=== PATIENT | female | born 1970 | race Caucasian/White ===

== ENCOUNTER 2020-12-13 07:38 | Outpatient (CLI) | payer BC ==
[2020-12-13] MEDS ORDERED: LIDOCAINE 1% Multi-Dose 20 ML VIAL. ONE (08:04)
[2020-12-13] MEDS ORDERED: IOHEXOL 180 MG/ML 10 ML VIAL. ONE (08:04)
[2020-12-13 09:17] VITALS: BP 200/110
[2020-12-13 09:22] VITALS: BP 168/81
--- NOTE | 2020-12-13 09:36 | RAD ---
EXAM: Fluoroscopic guided lumbar puncture for CT myelography; lumbar spine CT myelogram. HISTORY: 50-year-old female with back and hip pain. TECHNIQUE: The risks of the procedure discussed with the patient and written and verbal consent was o btained. A timeout was performed. The patient was placed in a prone position on the fluoroscopy table and a site overlying L3-L4 was selected for needle entry. The skin in this location was sterilely pr epped, draped and infiltrated with 1 percent lidocaine. A 22-gauge needle was advanced into the theca l sac. No fluid was obtained. Therefore, using the same technique, the L4-L5 level was selected for n eedle entry. A 22-gauge needle was advanced into the thecal sac and fluid was obtained and the needle hub. 12 cc of Omnipaque 180 intrathecal contrast was then injected into the thecal sac. The needle w as removed and a sterile measures placed at the needle entry sites. Standing upright neutral and flex ion and extension fluoroscopic images were obtained. The patient was transferred to the CT suite for the post injection CT portion of the exam and discharged one hour following the procedure in stable c ondition. There is no immediate complication. 3 fluoroscopic images were obtained for total fluorosco py time of 2.1 minutes. *One or more of the following individualized dose reduction techniques were utilized for this examina tion: 1. Automated exposure control. 2. Adjustment of the mA and/or kV according to patient size. 3. Use of iterative reconstruction technique. COMPARISON: MRI dated 09/19/2020. FINDINGS: There is mild S-shaped lumbar scoliosis, with levocurvature centered at the lower lumbar le vels and dextrocurvature centered at the upper lumbar levels. There is a 1 mm anterolisthesis of L3 o n L4. There is no abnormal motion between flexion and extension. There is multilevel endplate remodel ing. There are few small endplate Schmorl's nodes. There is disc space narrowing predominantly at L1- L2 and L5-S1. There is no fracture or suspicious osseous lesion. There is partial visualization of a suspected bilobed hypoechoic lesion arising from the left adrenal gland, measuring 4.4 cm. This abuts the upper pole of the left kidney. There is a 1 mm nonobstructing stone within the right kidney. The re is degenerative subchondral sclerosis and spurring involving the sacroiliac joints. The conus term inates at L1 At T12-L1, there is mild right facet arthropathy. There is no stenosis. At L1-L2, there is a broad-based right paracentral disc protrusion with slight superior extrusion sup erimposed on a disc bulge and endplate remodeling. There is mild effacement of the right ventral thec al sac and abutment the traversing nerve roots, without significant stenosis. At L2-L3, there is a disc bulge and endplate remodeling. There is mild right facet arthropathy. There is no stenosis. At L3-L4, there is a disc bulge and endplate remodeling. There is mild right and moderate left facet arthropathy. There is minimal grade 1 anterolisthesis. There is no stenosis. At L4-L5, there is a disc bulge and endplate remodeling. There is moderate right facet arthropathy. T here is mild bilateral foraminal stenosis. At L5-S1, there is a posterior central disc protrusion and right foraminal to extra foraminal disc os teophyte complex superimposed on a disc bulge and endplate remodeling. There is moderate right and mi ld left foraminal stenosis. IMPRESSION: 1. Multilevel degenerative change involving the lumbar spine, described in detail above. This is asso ciated with mild bilateral foraminal stenosis at L4-L5 and moderate right and mild left foraminal samanta nosis at L5-S1. 2. Minimal lumbar scoliosis and minimal grade 1 anterolisthesis of L3 on L4. 3. 4.5 cm hypodense lesion involving the left adrenal gland, the attenuation which favors an adrenal adenoma. In the absence of prior studies to confirm stability, further evaluation with an adrenal pro tocol CT or MRI can be performed to confirm benignity. 4. Incidental punctate nonobstructing right renal stone. Electronically signed by: Lyly Patricia MD (12/13/2020 9:33 AM) [id number]
[2020-12-13 09:39] VITALS: BP 153/82
[2020-12-13 09:52] VITALS: BP 129/62
--- NOTE | 2020-12-13 09:53 | NUR ---
Patient's VS stable. Access site clean, dry. Patient able to stand and get dressed. Ate toast, drank tea. No headache, no nausea. Instructions provided-- patient and verbalized understanding. Patient's driving home.
--- NOTE | 2020-12-13 10:11 | NUR ---
Disc given to patient. See VS.
[2021-01-04] MEDS ORDERED: ASPI-630 PO (08:38)
[2021-01-04] MEDS ORDERED: MULT-658 PO (08:38)
[2021-01-04] MEDS ORDERED: POTA-163 PO (08:38)
[2021-01-04] MEDS ORDERED: VITA400T6 PO (08:38)
[2021-01-04] MEDS ORDERED: ASCO500C PO (08:38)
[2021-01-04] MEDS ORDERED: ZINC50TA39 PO (08:38)
[2021-01-04] MEDS ORDERED: CALC1TAB PO (08:38)
[2021-01-04] MEDS ORDERED: PRAV80TA2 PO (08:38)
[2021-01-04] MEDS ORDERED: HYDR-2145 PO (08:38)
[2021-01-04] MEDS ORDERED: DEXL60CA2 PO (08:38)
[2021-01-04] MEDS ORDERED: LEVO25TA4 PO (08:38)
[2021-01-04] MEDS ORDERED: OMEG-152 PO (08:38)
[2021-01-04] MEDS ORDERED: CHOL5000 PO (08:38)
[2021-01-04] MEDS ORDERED: TELM1TAB2 PO (10:17)
== END 2020-12-13 10:00 | disposition home or self-care (01) ==
LOC: RAD 07:38
PROVIDERS: ATTEND Neurological Surgery
DX: M47.26 Other spondylosis with radiculopathy, lumbar region (principal); M48.061 Spinal stenosis, lumbar region without neurogenic claudication; M41.86 Other forms of scoliosis, lumbar region; N20.0 Calculus of kidney; Z91.040 Latex allergy status
CPT/HCPCS: 62304; 72132

== ENCOUNTER → 2021-01-02 | Outpatient (CLI) | payer BC ==
[2020-12-13 09:52] VITALS: BP 129/62
[~2021-01-02] MED LIST: ASCO500C PO; ASPI-630 PO; CALC1TAB PO; CHOL5000 PO; DEXL60CA2 PO; DOCU-109 PO; HYDR-2145 PO; HYDR-2761 PO; LEVO25TA4 PO; METH-562 PO; MULT-658 PO; OMEG-152 PO; POTA-163 PO; PRAV80TA2 PO; TELM1TAB2 PO; VITA400T6 PO; ZINC50TA39 PO
--- NOTE | 2021-01-02 15:36 | EKG ---
[facility] [address] [place] [address] Test Date: 2021-01-02 Test Time: 15:35:57 Pat Name: SHEREEN MISTRY Department: Room: Gender: F Freight Sorter: MARTY : 1970 Requested By: ROMULO ROACH Order Number: [id number] Reading MD: Ayo Bower MD Measurements Intervals [place] Rate: 83 P: 53 MS: 200 QRS: 43 QRSD: 82 T: 32 QT: 360 QTc: 429 Interpretive Statements SINUS RHYTHM Electronically Signed On 01-03-2021 9:27:57 RAIL TRANSPORTATION TABELER by Ayo Bower MD
[2021-01-02 15:45] LABS: BASO # 0.1 x10^3/uL (0.0-0.2); BASO % 2 % (0-3); EOS # 0.2 x10^3/uL (0.0-0.7); EOS % 2 % (0-3); HEMATOCRIT 38.7 % (36.0-47.0); HEMOGLOBIN 13.1 g/dL (12.0-15.5); LYMPH % 25 % (24-48); MEAN CORPUSCULAR HEMOGLOBIN 29 pg (25-35); MEAN CORPUSCULAR HGB CONC 34 g/dL (31-37); MEAN CORPUSCULAR VOLUME 86 fL (79-100); MONO # 0.7 x10^3/uL (0.0-1.1); MONO % 9 % (0-9); NEUT # 5.2 x10^3/uL (1.8-7.7); NEUT % 63 % (31-73); PLATELET COUNT 315 x10^3/uL (140-400); RED CELL DISTRIBUTION WIDTH 13.5 % (11.5-14.5); WHITE BLOOD COUNT 8.2 x10^3/uL (4.0-11.0)
[2021-01-02 16:08] LABS: ALBUMIN 3.9 g/dL (3.4-5.0); ALBUMIN/GLOBULIN RATIO 1.2 (1.0-1.7); CREATININE 0.9 mg/dL (0.6-1.0); GFR 65.8; POTASSIUM 3.5 mmol/L (3.5-5.1); TOTAL BILIRUBIN 0.4 mg/dL (0.2-1.0); TOTAL PROTEIN 7.2 g/dL (6.4-8.2)
== END ==
LOC: SURGPAT 13:13
PROVIDERS: ATTEND Neurological Surgery
DX: Z01.818 Encounter for other preprocedural examination (principal); M48.07 Spinal stenosis, lumbosacral region; M54.17 Radiculopathy, lumbosacral region
CPT/HCPCS: 36415; 80053; 85025; 87641; 93005

== ENCOUNTER 2021-01-05 06:57 | Observation (INO) | payer BC ==
[2021-01-04 09:05] VITALS: BP 151/92
[2021-01-05] VITALS (10 sets, daily range): BP systolic 106–151; BP diastolic 60–92
[~2021-01-05] VITALS: Ht 154.9 cm; Wt 109.0 kg
[~2021-01-05 06:57] MED LIST changes: +BUPIVACAINE-EPI 0.5% 30 ML VIAL KIT. ONE; +DEXAMETHASONE SOD PHOS 4 MG/ML VIAL ONE; -DOCU-109 PO; +GELATIN SPONGE SIZE 100. ONE; +GLYCOPYRROLATE 1 MG/5 ML VIAL. ONE; -HYDR-2761 PO; +HYDROmorphone 2 MG/ML VIAL IVP PRN; +IV RINGERS,LACTATED 1000ML 1,000 ML IV SCH; +KETAMINE HCL IN NACL, ISO-OSM 50 MG/5 ML SYRINGE ONE; +KETOROLAC 60 MG/2 ML VIAL. ONE; +LIDOCAINE 2% PF 5 ML VIAL. ONE; -METH-562 PO; +MIDAZOLAM HCL/PF 2 MG/2 ML VIAL. ONE; +NEOSTIGMINE METHYLSULFATE 5 MG/5 ML SYRINGE. ONE; +ONDANSETRON PF 4 MG/2 ML VIAL. ONE; +PROCHLORPERAZINE 10 MG/2 ML VIAL. IVP PRN; +PROPOFOL 10 MG/ML (20ML) VIAL. IV ONE; +PROPOFOL 50 ML IV ONE; +REMIFENTANIL 1 MG VIAL. IV ONE; +ROCURONIUM 50 MG/5 ML VIAL. ONE; +SEVOFLURANE > 120 MINUTES. IH ONE; +THROMBIN TOPICAL 20,000 UNIT SPRAY.SYRN KIT TP ONE; +ceFAZolin SODIUM 1 GM in IV NORMAL SALINE 1000ML BAG 1,000 ML IRR ONE; +fentaNYL PF VIAL 100 MCG/2 ML VIAL IVP PRN; +fentaNYL PF VIAL 100 MCG/2 ML VIAL ONE
[2021-01-05] MEDS ORDERED: diphenhydrAMINE 50 MG/ML VIAL ONE (07:37)
[2021-01-05] MEDS ORDERED: SCOPOLAMINE 1.5MG PATCH. TD ONE (08:15)
[2021-01-05] MEDS ORDERED: PROPOFOL 150 ML IV ONE (10:00)
[2021-01-05] MEDS ORDERED: SUGAMMADEX SODIUM 200 MG/2 ML VIAL. IVP ONE (10:00)
[2021-01-05] MEDS ORDERED: HYDROmorphone 2 MG/ML VIAL ONE (10:27)
--- NOTE | 2021-01-05 10:42 | PREOP HP ---
DATE OF SERVICE: 01/05/2021 HISTORY OF PRESENT ILLNESS: The patient is a pleasant 50-year-old who is having trouble with low back pain and pain that radiates to her right buttock and proximal posterior thigh. It started in 2019 after she fell on ice. She says the pain can reach 9/10. Any increase in her activity increases her pain. She has been taking Excedrin and tramadol. She had water therapy as well as an ablation and lumbar epidural steroid injections which she said helped temporarily. She did also have physical therapy this year, which she did not feel helped her. CURRENT MEDICATIONS: Caltrate, Centrum, fish oil, zinc, vitamin D, vitamin E, vitamin C, Barbara aspirin, pravastatin, potassium, levothyroxine, hydrochlorothiazide, Dexilant, tramadol. PAST MEDICAL HISTORY: Headaches, hypertension, kidney stones, heart murmur. PAST SURGICAL HISTORY: Two cervical surgeries, hysterectomy, lumbar surgery at L5-S1 in 2014, left knee surgery x3, cholecystectomy, carpal tunnel release on the right, appendectomy. FAMILY HISTORY: Heart disease, COPD. SOCIAL HISTORY: Employed at [employer] and [employer]. . Nonsmoker. Does not drink alcohol. ALLERGIES: LATEX. REVIEW OF SYSTEMS: A 12-point review of systems was performed and is noncontributory except that mentioned above. PHYSICAL EXAMINATION: GENERAL APPEARANCE: Alert, pleasant, and in no acute distress. HEENT: Head is normocephalic, atraumatic. SKIN: Warm and dry. Well-healed lumbar incision. MUSCULOSKELETAL: Lumbar paraspinal muscle bulk is normal. Restricted range of motion of the lumbar spine, [id number] tenderness of the lower lumbar spine on palpation. Normal range of motion of the lower extremities bilaterally. EXTREMITIES: No clubbing, cyanosis or edema. NEUROLOGIC: Alert and oriented x3. Strength is 5/5 in the lower extremities bilaterally. Sensory is intact to light touch in the lower extremities bilaterally. Reflexes are present and symmetric in the lower extremities bilaterally. Positive straight leg raising on the right and negative straight leg raising on the left. Normal gait. IMAGING: Reviewed a lumbar myelogram and post-myelogram CT scan. There is clearly foraminal narrowing which is significant at L5-S1 on the right. Part of the problem appears to be a calcified disk laterally, which is narrowing the foramen. ASSESSMENT AND PLAN: I believe the problems are at L5-S1 on the right. I outlined the surgery for this problem. I explained that she has had previous surgery at this level, which complicates her operation. She will need a transforaminal decompression at this level. I spoke with her about the surgery, the risk and the expected postoperative course. She understands and would like to go ahead. SAMI DR: Lisa TID: [id number]
[2021-01-05] MEDS ORDERED: MAG HYDROX/ALUMINUM HYD/SIMETH 30 ML ORAL.SUSP PO PRN (12:45)
[2021-01-05] MEDS ORDERED: 0.9 % SODIUM CHLORIDE 10 ML DISP.SYRIN. IV PRN (12:45)
[2021-01-05] MEDS ORDERED: CALCIUM CARBONATE 500 MG TAB.CHEW PO PRN (12:45)
[2021-01-05] MEDS ORDERED: diphenhydrAMINE HCL 25 MG CAPSULE PO PRN (12:45)
[2021-01-05] MEDS: POTASSIUM CL 20MEQ D5-0.45NACL 1,000 ML IV SCH (12:45)
[2021-01-05] MEDS ORDERED: NALOXONE 0.4 MG/ML VIAL. IV PRN (12:45)
[2021-01-05] MEDS ORDERED: ONDANSETRON PF 4 MG/2 ML VIAL. IVP PRN (12:45)
[2021-01-05] MEDS ORDERED: ACETAMINOPHEN 325 MG TABLET. PO PRN (12:45)
[2021-01-05] MEDS ORDERED: METHOCARBAMOL 750 MG TABLET PO PRN (12:45)
[2021-01-05] MEDS ORDERED: fentaNYL PF VIAL 100 MCG/2 ML VIAL IVP PRN (12:45)
[2021-01-05] MEDS ORDERED: HYDROcodone/APAP 5/325MG 1 TAB TABLET PO PRN ×2 (12:45)
[2021-01-05] MEDS ORDERED: MAGNESIUM HYDROXIDE 2,400 MG/30 ML ORAL.SUSP. PO PRN (12:45)
[2021-01-05] MEDS: fentaNYL PF VIAL 100 MCG/2 ML VIAL IVP PRN ×4 (13:09→13:56)
--- NOTE | 2021-01-05 13:17 | OP ---
DATE OF SURGERY: 01/05/2021 PREOPERATIVE DIAGNOSIS: Foraminal disc herniation and calcified disc, L5-S1, right foraminal. POSTOPERATIVE DIAGNOSES: Foraminal disc herniation and calcified disc, L5-S1, right foraminal plus posterolateral subligamentous disc herniation at L5-S1 with compression of the right S1 nerve root. OPERATIONS PERFORMED: Transfacet microdecompression of the L5 root in the foramen at L5-S1, right with microdiscectomy removal of a foraminal disc, L5-S1, right and decompression of the right L5 root plus reop microhemilaminotomy, partial foraminotomy with removal of subligamentous disc herniation at L5-S1, right. The operation was performed with EMG monitoring, SSEP monitoring, fluoroscopy and microscopy. SURGEON: Duy Reyes M.D. [employer] F[employer]ER: Leelee Bailey APRN SPECIMEN: Disc and decompression. OPERATIVE INDICATIONS: The patient is a pleasant 50-year-old who a number of years ago underwent microsurgical decompression at L5-S1 on the right and did well. She then developed recurrent pain, which was severe. On imaging studies, there was a foraminal disc herniation and a calcified bulging disc at L5-S1 right foramen with compression of the right L5 root and I recommended a transforaminal microdecompression at that level. I spoke with him about the surgery, the risks, the technique and the expected postoperative course, she wished to go ahead. DESCRIPTION OF PROCEDURE: Following general endotracheal anesthesia, the patient was prepped and draped in the standard fashion. BREANA hose and AV impulse boots were applied for DVT prophylaxis. The microscope was draped, fluoroscopy was draped and brought into the field. Monitoring was established. Ancef 2 grams was given less than 1 hour prior to initiation of surgery. Using fluoroscopic guidance, incision was made in the midline over the L5-S1 interspace. I dissected down through skin and subcutaneous tissue, reflected the paraspinal muscles and placed a 105 mm Gerlaw microdisk retractor. I brought in the microscope at this point and exposed the edges of the previous hemilaminotomy from her previous surgery. I then began drilling laterally superior to this, created an exposure in the foramen. I trimmed away the ligamentum flavum and visualized the L5 root in the foramen. It was lifted and compressed by soft and hard disc and I incised the annulus. I performed a discectomy and I worked diligently to decompress the root of the foramen. I did use down pushing curettes to tamp down some of the spurring there to fully decompress the root. Following this, I felt that I had an excellent decompression of the L5 root. I worked slightly medially and performed a partial foraminotomy for the S1 root and retracted the root medially. There was some evidence of lifting of the nerve root as I worked on the S1 root and dura. As I worked on the L5 root and as I explored further medially, there was a large subligamentous disc in this location, which I teased back and removed. I entered the disc space more medially and I performed a generous discectomy. Following this, I explored carefully, both roots were very free. I irrigated copiously. I closed the wound in layers with absorbable suture. The skin was closed with 4-0 subcuticular stitch. I was quite pleased with the surgery. SHY DR: Merlin TID: [id number] TONY
[2021-01-05] MEDS ORDERED: fentaNYL PF VIAL 100 MCG/2 ML VIAL ONE (13:29)
[2021-01-05] MEDS ORDERED: MORPHINE SULFATE 2 MG/ML INJ. ONE (13:35)
[2021-01-05] MEDS: MORPHINE SULFATE 2 MG/ML INJ. IVP PRN ×2 (13:37→13:48)
--- NOTE | 2021-01-05 16:45 | NUR ---
Arrived to unit by bed from PACU. Awake and oriented x's 4. No c/o at this time. Moves all extremeties without difficulty. Pedal pulses + bilaterally, warm touch and wiggles toes easily. BREANA's and LEAH's on bilaterally. IVF's intact and infusing. O2 at 2l per n/c. Oriented to room and controls side rails up x's 2 with call light in reach. Spouse at bedside. Cont. monitor.
[2021-01-05] MEDS: DOCUSATE SODIUM 100 MG CAPSULE. PO SCH (19:25)
[2021-01-06] MEDS: POTASSIUM CL 20MEQ D5-0.45NACL 1,000 ML IV SCH (02:05)
[2021-01-06 02:55] VITALS: BP 103/50
[2021-01-06] MEDS ORDERED: LEVOTHYROXINE 25 MCG TABLET. PO SCH (06:00)
[2021-01-06 07:30] VITALS: BP 117/55
[2021-01-06] MEDS ORDERED: PANTOPRAZOLE 40 MG TABLET.DR. PO SCH (07:30)
[2021-01-06] MEDS ORDERED: POTASSIUM CHLORIDE 20 MEQ TABLET.ER. PO SCH (08:00)
[2021-01-06] MEDS: DOCUSATE SODIUM 100 MG CAPSULE. PO SCH (08:46)
[2021-01-06] MEDS ORDERED: ATORVASTATIN CALCIUM 20 MG TABLET ONE (09:00)
[2021-01-06] MEDS ORDERED: ATORVASTATIN CALCIUM 20 MG TABLET PO SCH (09:00)
[2021-01-06] MEDS ORDERED: PRENATAL MULTIVITAMIN TABLET. PO SCH (09:00)
[2021-01-06] MEDS ORDERED: VITAMIN E 200 UNIT CAPSULE. PO SCH (09:00)
[2021-01-06] MEDS ORDERED: ASPIRIN CHEWABLE 81 MG TABLET. PO SCH (09:00)
[2021-01-06] MEDS ORDERED: CALCIUM CARB/VIT D3 500/200 TABLET. PO SCH (09:00)
[2021-01-06] MEDS ORDERED: hydroCHLOROthiazide 12.5 MG CAPSULE PO SCH (09:00)
[2021-01-06] MEDS ORDERED: ZINC SULFATE 220 MG CAPSULE. PO SCH (09:00)
[2021-01-06] MEDS ORDERED: ASCORBIC ACID 1,000 MG TABLET PO SCH (09:00)
[2021-01-06] MEDS ORDERED: LOSARTAN POTASSIUM 25 MG TABLET. PO SCH (09:00)
[2021-01-06] MEDS ORDERED: hydroCHLOROthiazide 25 MG TABLET PO SCH (09:00)
[2021-01-06] MEDS ORDERED: OMEGA-3 FATTY ACIDS/FISH OIL 1,000 MG CAPSULE. PO SCH (09:00)
[2021-01-06] MEDS ORDERED: CALCIUM CARB/VIT D3 500/200 TABLET. ONE (09:00)
[2021-01-06 11:00] VITALS: BP 124/63
[2021-01-06] MEDS ORDERED: METH-562 PO (13:38)
[2021-01-06] MEDS ORDERED: DOCU-109 PO (13:38)
[2021-01-06] MEDS ORDERED: HYDR-2761 PO (13:38)
--- NOTE | 2021-01-06 13:40 | DISCH ---
DISCHARGE INSTRUCTIONS Condition on Discharge Condition on Discharge: Stable Activity After Discharge Activity Instructions for Disc: Activity as tolerated Other activity instructions: no driving for a week, no direct water pressure to incision Bathing Instructions: Shower-keep dressing dry Lifting Instructions after Dis: No pulling or pushing, Do not lift >10 pounds Diet after Discharge Additional Diet Restrictions: resume home diet Wound Incision Care Wound/Incision Care: Ice to area for comfort Other wound/incision instructi: may remove dressing in 48 hrs if dry then may shower,leave steri strips on Contacting the DRBlayne after DC Call your doctor for: Concerns you may have Follow-Up Follow up with: Dr. Roach in 2 weeks [phone] ROMULO ROACH MD Jan 06, 2021 13:40
--- NOTE | 2021-01-06 14:33 | DS ---
DATE OF DISCHARGE: 01/06/2021 DISCHARGE DIAGNOSIS: Foraminal disk herniation at L5-S1, right. OPERATION PERFORMED: Transfacet microdecompression of the L5 root in the foramen at L5-S1 with microdiskectomy, removal of foraminal disc L5-S1, right, and decompression of the right L5 root plus reop hemilaminotomy, partial foraminotomy with removal of subligamentous disk herniation at L5-S1, right. HISTORY OF PRESENT ILLNESS: The patient is a pleasant 50-year-old who a number of years ago underwent microsurgical decompression at L5-S1 on the right and she did well. She then developed recurrent pain, which was severe. On imaging studies, there was a foraminal disk herniation and a calcified disk at L5-S1 on the right with compression of the right L5 root and I recommended a transforaminal microdecompression at that level. I spoke with her about the surgery and the risk and the technique and expected postoperative course, and she wished to go ahead. HOSPITAL COURSE: She was admitted to the floor postoperatively where she did well. She was up ambulating in the room and in the halls. Physical therapy was initiated and instruction was given to her regarding her activities. Her pain is well controlled. She is in good condition to discharge home. DISCHARGE MEDICATIONS: She will resume her medications per the MRAD. DISCHARGE INSTRUCTIONS: She was instructed regarding incision care, activity restrictions and expectations for the next several weeks. She will follow up in our office in 2 weeks. She understands to call with any questions or concerns. ORTEGA DR: Lisa TID: [id number]
--- NOTE | 2021-01-06 15:18 | NUR ---
Patient discharged home with spouse with all discharge instructions and personal belongings. patient transported by wheelchair by staff.
--- NOTE | 2021-01-10 17:07 | PATHOLOGY ---
[facility] Accession Number: [id number] . 01 Material submitted: . vertebral column - LUMBAR DECOMPRESSION AND DISC. Modifiers: LUMBAR . 01 Clinical history: . LUMBAR STENOSIS, RADICULOPATHY LUMBAR MICRODECOMPRESSION L5-S1 . 02 Diagnosis: Bone and soft tissue, "L5-S1", excision: - Fragments of reactive/degenerative hyaline cartilage. - Fragments of bony trabeculae, demonstrating trilineage hematopoiesis. - Fragments of benign fibrous tissue. - Negative for malignancy. (ELLEN:mony; 01/09/2021) MBYana 01/09/2021 1759 Local . 02 Electronically signed: . Rick Figueroa MD, Pathologist NPI- [id number] . 01 Gross description: . Received in formalin labeled "Elsa Powell, lumbar decompression and disc" is a 3.7 x 3.0 x 0.6 cm aggregate of rachel-brown friable bone and soft tissue fragments. Warning Analyst tissue is submitted in cassette A1 following decalcification. [place] [place] [facility] 01/07/2021 0928 Local . 02 Pathologist provided ICD-10: M51.36 . 02 CPT . 806879, [id number] Specimen Comment: A courtesy copy of this report has been sent to [phone] Specimen Comment: Report sent to Performed at: 01 [facility] [address], [place] [id number] MD Miguel Angel Murphy MD Phone: [phone] Performed at: 02 [facility] [address], [place] [id number] MD Galdino Rubin MD Phone: [phone]
== END 2021-01-06 15:15 | disposition home or self-care (01) ==
LOC: SURG 06:57 → 4 NORTH 12:34
PROVIDERS: ADMIT Neurological Surgery; ATTEND Neurological Surgery
DX: M51.27 Other intervertebral disc displacement, lumbosacral region (principal); I10 Essential (primary) hypertension; I49.9 Cardiac arrhythmia, unspecified; Z87.442 Personal history of urinary calculi; Z90.710 Acquired absence of both cervix and uterus; Z90.49 Acquired absence of other specified parts of digestive tract; Z79.899 Other long term (current) drug therapy; Z98.890 Other specified postprocedural states
CPT/HCPCS: 63042; 97116; 97161; A4364; A4930; A6254; A6258; G0378; G0379; J0690; J1100; J1170; J1200; J1885; J2250; J2270; J2405; J2704; J2710; J3010; J3480; J3490; J7030; 76000; A4222; A4223; A4452